=== PATIENT | male | born 1990 | race Caucasian/White ===

== ENCOUNTER 2017-10-27 03:44 | Emergency (ER) | payer SELFPAY ==
[~2017-10-27] VITALS: Ht 185.4 cm; Wt 106.8 kg
[~2017-10-27 03:44] MED LIST: ALBUTEROL SULF8.5 GM IH; LEVAQUIN750 MG PO; MUCINEX600 MG PO; NICOTINE PATCH1 EAC2 TD; PROAIR HFA8.5 GM IH
[2017-10-27 04:23] LABS: HEMATOCRIT 44.5 % (38.0-50.0); MCH 34.1 PG (29.0-34.0); MCHC 37.5 G/DL (30.0-36.0); MCV 90.8 FL (86-99); MEAN PLAT.VOLUME 9.1 uM^3 (9.0-12.4); PLATELET COUNT 236 K/uL (156-360); RBC DIS.WIDTH-CV 11.9 % (11.8-14.6); RBC DIS.WIDTH-SD 39.5 % (39-53); WHITE BLOOD COUNT 7.6 K/uL (4.1-10.2)
[2017-10-27 04:32] LABS: CHLORIDE 103 mEq/L (99-109); POTASSIUM 3.1 mEq/L (3.7-5.4); SODIUM 139 mEq/L (136-147)
[2017-10-27 04:33] LABS: MAGNESIUM 2.3 mg/dL (1.3-2.7)
[2017-10-27 04:35] LABS: GLUCOSE 101 mg/dL (70-99)
[2017-10-27 04:36] LABS: ANION GAP 10 MEQ/L (2-14)
[2017-10-27 04:37] LABS: TOTAL BILIRUBIN 0.6 mg/dL (0.0-1.0)
[2017-10-27 04:39] LABS: ALKALINE PHOSPHATASE 72 IU/L (3-129); GFR ESTIMATE (CALCULATED) > 59 mL/min/ (58.99-99999)
[2017-10-27 04:40] LABS: UREA NITROGEN (BUN) 7 mg/dL (9-23)
[2017-10-27 04:42] LABS: LIPASE 20 U/L (1.0-51.0)
[2017-10-27 04:48] LABS: TROP-I INTERPRETATION NEGATIVE; TROPONIN-I < 0.01 ng/mL (0.0-0.30)
[2017-10-27 05:12] LABS: CREATINE KINASE 167 IU/L (1-294)
[2017-10-27 05:56] LABS: D-DIMER ELISA < 150.00 ng/mLDDU (<230)
[2017-10-27 06:35] VITALS: BP 138/87
[2017-10-27 06:41] LABS: ADD MIUA? NO; BILIRUBIN NEGATIVE; BLOOD NEGATIVE; COLOR STRAW ((YELLOW)); GLUCOSE (STRIP) 50; KETONES NEGATIVE; LEUKOCYTES NEGATIVE; NITRITE NEGATIVE; PROTEIN (STRIP) NEGATIVE; SPECIFIC GRAVITY 1.005 (1.000-1.030); UCUL ADDED? NO; UROBILINOGEN 0.2 MG/DL (0.2-1.0)
== END 2017-10-27 06:35 | disposition home or self-care (01) ==
LOC: EME → EDBD 03:44 → EME 06:35
PROVIDERS: Emergency Medicine
DX: R00.2 Palpitations (principal); R79.89 Other specified abnormal findings of blood chemistry; E86.0 Dehydration; F41.9 Anxiety disorder, unspecified; K58.9 Irritable bowel syndrome, unspecified; Z87.891 Personal history of nicotine dependence
CPT/HCPCS: 71020; 80053; 81003; 82550; 83690; 83735; 84100; 84484; 85027; 85379; 93005; 99281; 99285; J7030